=== PATIENT | female | born 1985 | race Asian ===

== ENCOUNTER 2023-10-11 21:25 | Inpatient (IN) | payer OTHER ==
[~2023-10-11] VITALS: Ht 154.9 cm; Wt 67.6 kg
[2023-10-11] MEDS ORDERED: OXYTOCIN 10 UNITS/ML VIAL ONE (22:40)
[2023-10-11] MEDS ORDERED: OXYTOCIN 20 UNITS in NACL 0.9% 1,000 ML IV SCH (22:40)
[2023-10-11] MEDS ORDERED: METHYLERGONOVINE 0.2 MG/ML AMP IM PRN (22:55)
[2023-10-11] MEDS ORDERED: METHYLERGONOVINE 0.2 MG TAB PO PRN (22:55)
[2023-10-11] MEDS ORDERED: OXYTOCIN 10 UNITS/ML VIAL IM PRN (22:55)
[2023-10-11] MEDS ORDERED: oxyCODONE/APAP 5/325 MG 1 TAB TAB PO PRN ×2 (22:55)
[2023-10-11] MEDS ORDERED: BENZOCAINE/MENTHOL 20%-0.5% 60 GM CAN TP PRN (22:55)
[2023-10-11] MEDS ORDERED: IBUPROFEN 800 MG TAB PO PRN (22:55)
[2023-10-11] MEDS ORDERED: TEMAZEPAM 15 MG CAP PO PRN (22:55)
[2023-10-11 23:29] VITALS: BP 118/75; PULSE 90; RESP 18; TEMP 97.8
[2023-10-11 23:47] LABS: BASOPHILS # (AUTO) 0.1 K/uL (0.00-0.22); BASOPHILS % (AUTO) 0.3 % (0.0-2.0); EOSINOPHILS % (AUTO) 0.1 % (0.0-4.0); HEMATOCRIT 36.3 % (36-48); HEMOGLOBIN 12.2 g/dL (12.0-16.0); LYMPHOCYTES # (AUTO) 0.9 K/uL (2.5-16.5); LYMPHOCYTES % (AUTO) 4.8 % (20.5-51.1); MEAN CORPUSCULAR HEMOGLOBIN 31 pg (27-31); MEAN CORPUSCULAR HGB CONC 34 g/dL (33-37); MEAN CORPUSCULAR VOLUME 91.8 fL (80-94); MONOCYTES # (AUTO) 0.6 K/uL (0.8-1.0); MONOCYTES % (AUTO) 3.1 % (1.7-9.3); NEUTROPHILS # (AUTO) 17.3 K/uL (1.8-7.7); NEUTROPHILS % (AUTO) 91.7 % (42.2-75.2); PLATELET COUNT (AUTO) 223 K/uL (140-450); RED BLOOD CELL COUNT(AUTO) 3.96 MIL/uL (4.20-5.40); RED CELL DISTRIBUTION WIDTH 13.7 % (11.6-13.7); WHITE BLOOD COUNT (AUTO) 18.9 K/uL (4.8-10.8)
[2023-10-11 23:52] LABS: ANION GAP 9.6 (8-16); CARBON DIOXIDE 25.2 mmol/L (21-32); CREATININE 0.6 mg/dL (0.6-1.3); POTASSIUM 3.8 mmol/L (3.5-5.1)
[2023-10-11 23:58] LABS: ALBUMIN 2.7 g/dL (3.4-5.0); TOTAL BILIRUBIN 0.3 mg/dL (0.0-1.0); TOTAL PROTEIN, SERUM 7.2 g/dL (6.4-8.2)
[2023-10-12 00:01] LABS: HIV RAPID SCREEN NON-REACTIVE (NON REACTIV)
[2023-10-12 07:16] LABS: HEMATOCRIT 35.4 % (36-48); HEMOGLOBIN 11.9 g/dL (12.0-16.0)
[2023-10-12] MEDS ORDERED: DOCUSATE SOD/SENNA 50/8.6 MG 1 TAB PO SCH (21:00)
[2023-10-13 10:51] LABS: RAPID PLASMA REAGIN NON-REACTIVE (Non Reactiv)
== END 2023-10-13 16:00 | disposition home or self-care (01) | DRG 560 ==
LOC: MFCC 22:16
PROVIDERS: ADMIT Obstetrics & Gynecology; ATTEND Obstetrics & Gynecology
PROC: 10E0XZZ Delivery of Products of Conception, External Approach (ICD-10-PCS; principal; 2023-10-11)
DX: Z39.0 Encounter for care and examination of mother immediately after delivery (principal); Z37.0 Single live birth; Z20.822 Contact with and (suspected) exposure to COVID-19
CPT/HCPCS: 36415; 59409; 80053; 85018; 85025; 86592; 86886; 86900; 86901; 87340; J2590; J7030